=== PATIENT | male | born 2005 | race Caucasian/White ===

== ENCOUNTER 2025-02-06 20:44 | Emergency (ER) | payer MEDICAID ==
[~2025-02-06] VITALS: Ht 182.9 cm; Wt 81.7 kg
== END 2025-02-06 21:36 | disposition home or self-care (01) ==
LOC: ER 20:44
DX: S93.401A Sprain of unspecified ligament of right ankle, initial encounter (principal); X50.0XXA Overexertion from strenuous movement or load, initial encounter
CPT/HCPCS: 99283; L1906